=== PATIENT | male | born 1980 | race Caucasian/White ===

== ENCOUNTER 2020-07-02 21:16 | Inpatient (IN) | payer OTHER, SELFPAY ==
[2020-07-02 21:32] VITALS: BP 155/97; PULSE 93; RESP 16; TEMP 36.6; O2SAT 97; BMI 42.5
--- NOTE | 2020-07-02 22:20 | ED.PSYCH ---
HPI - Psych General Chief Complaint: Psychiatric Symptoms Stated Complaint: SI Time Seen by Provider: 07/02/20 22:12 Source: patient Mode of arrival: ambulatory Limitations: no limitations History of Present Illness HPI Narrative: This is a 40-year-old male with history of bipolar disorder and polysubstance abuse who is brought in for further evaluation for statements of wanting to kill himself and currently stating that he still wants to kill himself and had tried to yesterday by overdosing on heroin, but he states that someone came by and gave him Narcan. He states he is homeless, and very depressed. He endorses that he last used illicit substances earlier in the morning and specifies that he injected cocaine. He denies any recent alcohol use. Related Data Allergies Allergy/AdvReac Type Severity Reaction Status Date / Time No Known Allergies Allergy Unverified 06/12/20 15:32 [No Known Allergies*] Review of Systems Review of Systems: Pertinent positives and negatives as stated in the HPI. GEN: no fevers, chills, fatigue HEENT: no nasal congestion, sore throat, ear pain NEURO: no headache, dizziness, focal weakness PULM: no cough, shortness of breath CV: no chest pain, palpitations, LE edema ABD: no abdominal pain, nausea, vomiting, diarrhea : no dysuria, urgency, frequency SKIN: no rash ROS otherwise negative x 10 PMFSH Past Medical History Source: nursing notes reviewed Medical History Afib Anxiety Bipolar disorder Depression Stomach ulcer Social History Social History Alcohol intake: current Alcohol intake frequency: 3 or more drinks per day Alcohol type: beer and hard liquor Smoking Status: Current every day smoker Smoked in Last 30 Days: Yes Use of substances other than those prescribed or required for medical reasons: Yes Substance Use Type: Crack/Cocaine, Heroin and IV Drugs Substance Use Frequency: Daily Last Used Substance: Hours (ago) Any prior treatment program specific to substance use: Yes Advance Directives: No Advance Directives Information Provided: Yes Physical Exam Vital Signs and I&O and Narrative: Vital Signs and I&O: Vital Signs Temp 97.9 F 07/03/20 01:55 Pulse 82 07/03/20 01:55 Resp 15 07/03/20 06:00 BP 141/92 H 07/03/20 01:55 Pulse Ox 97 07/03/20 01:55 Intake & Output 07/02/20 07/03/20 07/03/20 18:59 06:59 18:59 Weight 127.006 kg Body Mass Index 42.5 VITAL SIGNS: Reviewed. GENERAL: Well developed, well nourished, in no acute distress. HEAD: Normocephalic/atraumatic, EYES: PERRLA, EOMI intact without pain, no nystagmus/pallor/icterus noted EARS: Ext canals without abnormality, TMs non-bulging and non-erythematous NOSE: Nares patent bilateral OROPHARYNX: no oral lesions noted, posterior pharynx clear and non-erythematous without noted tonsillar enlargement/erythema/exudates NECK: Supple, no adenopathy LUNGS: Normal breath sounds. No adventitious sounds or accessory muscle use. SpO2<97%> CARDIOVASCULAR: Regular rate and rhythm without noted murmurs, no JVD or lower extremity edema. ABDOMEN: Soft, non-tender, non-distended with bowel sounds. No rigidity. No guarding. No palpable masses or hernias noted MUSCULOSKELETAL: No tenderness, deformities, or effusions noted on gross inspection. EXTREMITIES: No cyanosis, clubbing or edema. SKIN: Inspection of the skin reveals no rashes, ulcerations, jaundice, pallor, or petechiae. NEUROLOGIC: Alert and oriented x 4. Strength and sensation to light touch were grossly intact x 4. Course Course Course Narrative: This is a 40-year-old male with history and clinical presentation consistent with decompensated bipolar disorder with depression. On review investigations there is a noted hypokalemia which was treated with 60 mEq of p.o. potassium chloride. Otherwise, U tox was positive for cocaine as endorsed by the patient. He is otherwise medically cleared for further evaluation by the crisis team and has been placed on a one-to-one. MDM - Psych Restraints Face to Face Assessment: Face to Face Assessment: Current Situation: After assessment of the patient, a review of the pertinent medical record and a discussion with nursing staff, I feel the patient requires a restrain intervention. Reaction To: [] Medical Condition: [] Behavioral State: [] Continued Need: [] Lab Data Result diagrams: 07/02/20 23:19 07/02/20 23:19 Labs: Lab Results 07/02/20 07/02/20 07/02/20 Range/Units 23:19 23:19 23:19 WBC 9.5 (4.8-10.8) X10*3/uL RBC 5.13 (4.60-5.80) X10*6/uL Hgb 15.6 (14.0-18.0) g/dl Hct 43.0 (42-52) % MCV 83.8 (80-98) fL MCH 30.4 (27.0-33.0) pg MCHC 36.3 H (31.0-36.0) g/dl RDW 12.1 (11.0-16.0) % Plt Count 203 (160-400) X10*3/uL MPV 10.6 (9.4-12.4) fL Immature Gran % (Auto) 0.5 H (0.0-0.4) % Neut % (Auto) 51.0 (45-73) % Lymph % (Auto) 27.6 (20-40) % [place] % (Auto) 16.3 H (2-11) % Eos % (Auto) 4.3 H (0-4) % Baso % (Auto) 0.3 (0-2) % Lymph # (Auto) 2.6 (1.2-4.9) X10*3/uL [place] # (Auto) 1.5 H (0.1-1.2) X10*3/uL Eos # (Auto) 0.4 (0.0-0.4) X10*3/uL Baso # (Auto) 0.0 (0.0-0.2) X10*3/uL Abs Immat Gran (auto) 0.05 H (0.00-0.03) X10*3/uL Absolute Neuts (auto) 4.8 (2.0-8.3) X10*3/uL Absolute Nucleated RBC 0.000 (0.0-0.012) X10*3/uL Nucleated RBC % (auto) 0.0 (0.0-0.2) /100WBC Smear Tech's Comments VERIFIED Sodium 139 (135-145) mmol/L Potassium 2.9 L (3.3-5.1) mmol/l Chloride 104 (96-108) mmol/L Carbon Dioxide 27 (22-29) mmol/L Anion Gap 11 L (12-20) BUN 13 (9-16) mg/dL Creatinine 1.06 (0.5-1.4) mg/dL Estim Creat Clear Calc 122.7 Estimated GFR > 60 Random Glucose 106 (60-115) mg/dL Calcium 8.6 (8.4-10.2) mg/dL Total Bilirubin 0.8 (0.0-1.0) mg/dL AST 25 (5-37) U/L ALT 41 H (0-40) U/L Alkaline Phosphatase 81 (39-117) U/L Total Protein 7.1 (6.5-8.0) g/dL Albumin 3.9 (3.5-5.0) g/dL Urine Color Urine Appearance Urine pH (5.0-8.0) Ur Specific [place] (1.005-1.025) Urine Protein (NEG-TRACE) MG/DL Urine Glucose (UA) (NEG) MG/DL Urine Ketones (NEG) MG/DL Urine Blood (NEG) Urine Nitrite (NEG) Ur Leukocyte Esterase (NEG) Urine Opiates Screen (Not Detect) Ur Barbiturates Screen (Not Detect) Ur Phencyclidine Scrn (Not Detect) Ur Amphetamines Screen (Not Detect) U Benzodiazepines Scrn (Not Detect) Urine Cocaine Screen (Not Detect) U Marijuana (THC) Screen (Not Detect) Ethyl Alcohol < 10 mg/dL 07/02/20 07/02/20 Range/Units 23:53 23:53 WBC (4.8-10.8) X10*3/uL RBC (4.60-5.80) X10*6/uL Hgb (14.0-18.0) g/dl Hct (42-52) % MCV (80-98) fL MCH (27.0-33.0) pg MCHC (31.0-36.0) g/dl RDW (11.0-16.0) % Plt Count (160-400) X10*3/uL MPV (9.4-12.4) fL Immature Gran % (Auto) (0.0-0.4) % Neut % (Auto) (45-73) % Lymph % (Auto) (20-40) % [place] % (Auto) (2-11) % Eos % (Auto) (0-4) % Baso % (Auto) (0-2) % Lymph # (Auto) (1.2-4.9) X10*3/uL [place] # (Auto) (0.1-1.2) X10*3/uL Eos # (Auto) (0.0-0.4) X10*3/uL Baso # (Auto) (0.0-0.2) X10*3/uL Abs Immat Gran (auto) (0.00-0.03) X10*3/uL Absolute Neuts (auto) (2.0-8.3) X10*3/uL Absolute Nucleated RBC (0.0-0.012) X10*3/uL Nucleated RBC % (auto) (0.0-0.2) /100WBC Smear Tech's Comments Sodium (135-145) mmol/L Potassium (3.3-5.1) mmol/l Chloride (96-108) mmol/L Carbon Dioxide (22-29) mmol/L Anion Gap (12-20) BUN (9-16) mg/dL Creatinine (0.5-1.4) mg/dL Estim Creat Clear Calc Estimated GFR Random Glucose (60-115) mg/dL Calcium (8.4-10.2) mg/dL Total Bilirubin (0.0-1.0) mg/dL AST (5-37) U/L ALT (0-40) U/L Alkaline Phosphatase (39-117) U/L Total Protein (6.5-8.0) g/dL Albumin (3.5-5.0) g/dL Urine Color AI Urine Appearance HAZY Urine pH 7.0 (5.0-8.0) Ur Specific [place] 1.020 (1.005-1.025) Urine Protein NEG (NEG-TRACE) MG/DL Urine Glucose (UA) NEG (NEG) MG/DL Urine Ketones NEG (NEG) MG/DL Urine Blood NEG (NEG) Urine Nitrite NEG (NEG) Ur Leukocyte Esterase NEG (NEG) Urine Opiates Screen Not Detected (Not Detect) Ur Barbiturates Screen Not Detected (Not Detect) Ur Phencyclidine Scrn Not Detected (Not Detect) Ur Amphetamines Screen Not Detected (Not Detect) U Benzodiazepines Scrn Not Detected (Not Detect) Urine Cocaine Screen POSITIVE H (Not Detect) U Marijuana (THC) Screen Not Detected (Not Detect) Ethyl Alcohol mg/dL
[2020-07-02 23:25] LABS: Basophils Percent Auto 0.3 % (0-2); Eosinophils Absolute Auto 0.4 X10*3/uL (0.0-0.4); Eosinophils Percent Auto 4.3 % (0-4); Hemoglobin 15.6 g/dl (14.0-18.0); Imm Gran Abs Auto 0.05 X10*3/uL (0.00-0.03); Imm Gran Pct Auto 0.5 % (0.0-0.4); Lymphocytes Absolute Auto 2.6 X10*3/uL (1.2-4.9); Lymphocytes Percent Auto 27.6 % (20-40); MANUAL DIFF FLAG SCAN; Mean Corpuscular HGB Conc 36.3 g/dl (31.0-36.0); Mean Corpuscular Hemoglobin 30.4 pg (27.0-33.0); Mean Corpuscular Volume 83.8 fL (80-98); Mean Platelet Volume 10.6 fL (9.4-12.4); Monocytes Absolute Auto 1.5 X10*3/uL (0.1-1.2); Monocytes Percent Auto 16.3 % (2-11); Neutrophils Absolute Auto 4.8 X10*3/uL (2.0-8.3); Platelet Count 203 X10*3/uL (160-400); Red Blood Count 5.13 X10*6/uL (4.60-5.80); Red Cell Distribution Width 12.1 % (11.0-16.0); SCAN SMEAR FLAG 1; White Blood Count 9.5 X10*3/uL (4.8-10.8)
[2020-07-02 23:45] LABS: SLIDE REVIEW VERIFIED
[2020-07-02 23:46] LABS: Ethanol < 10 mg/dL
[2020-07-02 23:51] VITALS: BP 131/88; PULSE 77; RESP 16; TEMP 35.8; O2SAT 99
[2020-07-02 23:52] LABS: Alanine Aminotransferase 41 U/L (0-40); Albumin Level 3.9 g/dL (3.5-5.0); Alkaline Phosphatase 81 U/L (39-117); Anion Gap 11 (12-20); Aspartate Amino Transferase 25 U/L (5-37); Bilirubin Total 0.8 mg/dL (0.0-1.0); Blood Urea Nitrogen 13 mg/dL (9-16); Calcium 8.6 mg/dL (8.4-10.2); Carbon Dioxide 27 mmol/L (22-29); Chloride 104 mmol/L (96-108); Creatinine Clr Calc Pharmacy 122.7; Estimated Glomerular Filt Rate > 60; Glucose Random 106 mg/dL (60-115); Potassium 2.9 mmol/l (3.3-5.1); Sodium 139 mmol/L (135-145); Total Protein 7.1 g/dL (6.5-8.0)
[2020-07-03] VITALS (9 sets, daily range): BP systolic 135–141; BP diastolic 67–92; PULSE 73–87; RESP 15–20; TEMP 35.9–37.1; O2SAT 95–98
[2020-07-03 00:11] LABS: Glucose Urine UA NEG (NEG); Leukocyte Esterase Urine NEG (NEG); Nitrite Urine NEG (NEG); Urine Blood NEG (NEG); Urine Ketones NEG (NEG); Urine Protein NEG (NEG-TRACE)
[2020-07-03 00:12] LABS: Appearance Urine HAZY; Color Urine AMBER; UACC Culture Trigger NO
--- NOTE | 2020-07-03 00:30 | PC.NURSE ---
FAXED TO [facility]. SPOKE WITH [facility]
[2020-07-03 00:34] LABS: Amphetamine Screen Urine Not Detected (Not Detect); Barbiturates, Urine Not Detected (Not Detect); Benzodiazepines Screen Urine Not Detected (Not Detect); Cannabinoid Screen Urine Not Detected (Not Detect); Cocaine Screen Urine POSITIVE (Not Detect); Opiate Screen Urine Not Detected (Not Detect); Phencyclidine Screen Urine Not Detected (Not Detect)
--- NOTE | 2020-07-03 11:49 | PC.NURSE ---
PT transferred to the pod from the main ED by security. Calm and cooperative. No other complaints.
--- NOTE | 2020-07-03 14:16 | PC.NURSE ---
Pt resting in common area, calm and cooperative, denies complaints.
--- NOTE | 2020-07-03 15:29 | PC.NURSE ---
PT is sitting quietly in the common room. Calm and cooperative. No complaints at this time.
--- NOTE | 2020-07-03 17:21 | PC.NURSE ---
PT is sleeping in his bed. Breathing is even and unlabored. No other complaints.
--- NOTE | 2020-07-03 19:15 | PC.NURSE ---
Report received from Jonas ZHAO. Pt sleeping in bed at this time. Resp reg and even. Inpatient bedsearch continues.
--- NOTE | 2020-07-03 22:19 | PC.NURSE ---
Pt sleeping at this time, resp reg and even. Inpatient bedsearch continues.
--- NOTE | 2020-07-04 | ECG_ITS ---
Test Reason : SOB Blood Pressure : / mmHG Vent. Rate : 066 BPM Atrial Rate : 066 BPM P-R Int : 146 ms QRS Dur : 090 ms QT Int : 434 ms P-R-T Axes : 023 -12 007 degrees QTc Int : 454 ms Normal sinus rhythm Normal ECG When compared with ECG of 05-APR-2020 16:23, Criteria for Anterior infarct are no longer Present Criteria for Anterolateral infarct are no longer Present T wave inversion no longer evident in Anterolateral leads Referred By: Anjelica Polanco Electronically Signed By:CHAN BUSTILLOS MD
[2020-07-04 00:21] VITALS: RESP 15
[2020-07-04 06:59] VITALS: BP 122/77; PULSE 73; RESP 17; TEMP 36.9; O2SAT 95
[2020-07-04 08:59] VITALS: RESP 18
[2020-07-04 11:00] VITALS: BP 114/78; PULSE 80; RESP 16; TEMP 36.3; O2SAT 97
[2020-07-04 12:38] LABS: SARS COV2 PCR INHOUSE NEGATIVE (Negative)
[2020-07-04 16:37] LABS: MANUAL DIFF FLAG NO
[2020-07-04 16:39] LABS: Basophils Percent Auto 0.3 % (0-2); Eosinophils Absolute Auto 0.4 X10*3/uL (0.0-0.4); Eosinophils Percent Auto 5.8 % (0-4); Hematocrit 42.1 % (42-52); Hemoglobin 15.1 g/dl (14.0-18.0); Imm Gran Abs Auto 0.04 X10*3/uL (0.00-0.03); Imm Gran Pct Auto 0.6 % (0.0-0.4); Lymphocytes Absolute Auto 2.4 X10*3/uL (1.2-4.9); Lymphocytes Percent Auto 33.5 % (20-40); Mean Corpuscular HGB Conc 35.9 g/dl (31.0-36.0); Mean Corpuscular Hemoglobin 30.3 pg (27.0-33.0); Mean Corpuscular Volume 84.5 fL (80-98); Mean Platelet Volume 10.6 fL (9.4-12.4); Monocytes Absolute Auto 0.8 X10*3/uL (0.1-1.2); Monocytes Percent Auto 11.5 % (2-11); Neutrophils Absolute Auto 3.4 X10*3/uL (2.0-8.3); Neutrophils Percent Auto 48.3 % (45-73); Platelet Count 201 X10*3/uL (160-400); Red Blood Count 4.98 X10*6/uL (4.60-5.80)
[2020-07-04 17:01] LABS: Anion Gap 10 (12-20); Blood Urea Nitrogen 16 mg/dL (9-16); Calcium 8.4 mg/dL (8.4-10.2); Carbon Dioxide 25 mmol/L (22-29); Chloride 105 mmol/L (96-108); Creatinine Clr Calc Pharmacy 126.3; Estimated Glomerular Filt Rate > 60; Glucose Random 141 mg/dL (60-115); Potassium 3.5 mmol/l (3.3-5.1); Sodium 136 mmol/L (135-145)
--- NOTE | 2020-07-04 17:04 | PC.NURSE ---
nurse to nurse updated to m5
[2020-07-04 17:29] VITALS: BP 122/78; PULSE 93; RESP 14; TEMP 36.1; O2SAT 98
[2020-07-04 19:16] VITALS: BP 131/64; PULSE 66; RESP 14; TEMP 36; O2SAT 96
[2020-07-04] MEDS: QUEtiapine Fumarate 200 MG TABLET PO (23:18)
[2020-07-04] MEDS: Divalproex Sodium ER 500 MG TAB.ER.24H PO (23:18)
[2020-07-04] MEDS: Melatonin 3 MG TABLET 6 MG PO (23:19)
[2020-07-04] MEDS: traZODone HCL 100 MG TABLET 200 MG PO (23:19)
[2020-07-05] MEDS: Omeprazole 20 MG CAPSULE.DR PO (06:55)
[2020-07-05] MEDS: Sertraline HCL 50 MG TABLET PO (09:03)
[2020-07-05 09:05] VITALS: BP 108/69; PULSE 69; TEMP 36.2
--- NOTE | 2020-07-05 15:19 | PC.ADMIT ---
THIS IS ONE OF MULTIPLE ADMISSIONS TO THIS [facility] AT [facility]=
--- NOTE | 2020-07-05 15:22 | PC.ADMIT ---
Addendum entered by Sheeba Saleh RN 07/05/20 16:14: PT ON 15 MIN SAFETY CHECKS. Original Note: THIS IS ONE OF MULTIPLE ADMISSIONS FOR THIS 39 Y.O. MALE TO THIS [facility] AT [facility]. ARRIVED ON UNIT 07/04/20 AT 1840 WITH DX OF UNSPECIFIED BIPOLAR D/O, COCAINE DEP, ALCOHOL USE D/O, OPIOID DEP. REFERRED BY N CRISIS IN [facility]. REPORTS ETOH USE DAILY-4 SLEEVES OF FIREBALL DAILY, COCAINE USE AND HEROIN USE-LAST USE 07/02/20. REPORTS RECENT INTENTIONAL OD ON HEROIN WITH NEED FOR NARCAN DAY PRIOR TO ADMISSION TO ED. REPORTS RECENT OF BEST FRIEND DUE TO UNINTENTIONAL OD. [place] POSITIVE FOR COCAINE. COOPERATIVE WITH COMPLETING ADMISSION. REPORTS PASSIVE SI ALWAYS, NO PLAN WHILE IN HOSPITAL. REPORTS VAGUE THOUGHTS OF HURTING OTHERS WITH VAGUE PLAN. NO PERSON IDENTIFIED TO HURT. DENIES AH/VH. REPORTS DEPRESSION AND ANXIETY. ISOLATIVE TO ROOM AND SELF. STATES BEING IN [place] CAUSES HIM ANXIETY. STATES HE IS MORE VISIBLE IN NIGHT TIME HOURS. STATES HE IS VERY TIRED FROM NOT SLEEPING PRIOR TO ADMISSION. DENIES S/SX OF WITHDRAWAL. ADMISSION ORDERS RECEIVED FROM DR BEVERLY. [facility] CLOSED. MEDS VERIFIED BY USE OF LAST DISCHARGE FROM UNIT MED LIST. CONDITIONAL VOLUNTARY SIGNED. PT PLACED ON 5 MIN CHECKS UPON ADMISSION. CURRENTLY ON 5 MIN CHECKS, UNLOCKED BATHROOM.
--- NOTE | 2020-07-05 19:14 | HO.PSYADMNOT ---
HPI Chief Complaint: SI Sources of Information: patient interviewed, chart reviewed and crisis/core team assessment reviewed Additional Sources of Information: CV HPI Narrative: Asher was referred by N after he presented to the ER with SI, in the context of homelessness and substance abuse. He has not been taking his medications consistently. He reports that he had OD on heroin and received Narcan. He was fearful that he would try again.'Toxic screen in the ER was negative. He has been increasingly despairing and hopeless. He reports that he just wants to give up He is relieved to be in the hospital Past Psychiatric History: Currently in treatment at [facility]. Psychiatrist is Rosendo Tomas Therapist is Iftikhar Banks [facility]. Last on M5 in March 2020, when there was a petition for s35 Medical Evaluation Reviewed: Yes Medically stable [facility] Medical History Afib Anxiety Bipolar disorder Depression Stomach ulcer Family History: Unknown Social History: Homeless Grew up in Foster Care Has GED He is on disability Substance History: Cocaine Heroin Cannabis Alcohol Last s35 March 2020 Very little sobriety Trauma History: Unknown Diagnostics Vital Signs (24Hr): Vital Signs - 24 hr 07/04/20 19:16 07/05/20 09:05 Temperature 96.8 F 97.1 F Pulse Rate 66 69 Respiratory Rate 14 Blood Pressure 131/64 108/69 Pulse Oximetry 96 Body Mass Index 42.5 Labs Results: 07/04/20 16:32 07/04/20 16:32 Labs: Laboratory Results - last 48 hr 07/04/20 07/04/20 07/04/20 11:25 16:32 16:32 WBC 7.0 RBC 4.98 Hgb 15.1 Hct 42.1 MCV 84.5 MCH 30.3 MCHC 35.9 RDW 12.0 Plt Count 201 MPV 10.6 Immature Gran % (Auto) 0.6 H Neut % (Auto) 48.3 Lymph % (Auto) 33.5 [place] % (Auto) 11.5 H Eos % (Auto) 5.8 H Baso % (Auto) 0.3 Lymph # (Auto) 2.4 [place] # (Auto) 0.8 Eos # (Auto) 0.4 Baso # (Auto) 0.0 Abs Immat Gran (auto) 0.04 H Absolute Neuts (auto) 3.4 Absolute Nucleated RBC 0.000 Nucleated RBC % (auto) 0.0 Sodium 136 Potassium 3.5 D Chloride 105 Carbon Dioxide 25 Anion Gap 10 L BUN 16 Creatinine 1.03 Estim Creat Clear Calc 126.3 Estimated GFR > 60 Random Glucose 141 H Calcium 8.4 Coronavirus (PCR) NEGATIVE Meds/Allergies Meds Home Medications Medication Instructions Recorded Confirmed Type No Known Home Meds 07/04/20 07/04/20 History Allergies Allergies Allergy/AdvReac Type Severity Reaction Status Date / Time No Known Allergies Allergy Unverified 06/12/20 15:32 [No Known Allergies*] Mental Status Exam Mental Status Exam Patient Appearance: Fatigued Patient Orientation: Person, Place and Time Level of Consciousness: Drowsy Patient Behavior: Guarded and Avoidant Mood Description: Apathetic, Anxious and Sad Affect Description: Depressed and Sad Patient Cognition Impaired: No Ability to Follow Directions: Good Speech Pattern: Clear, Appropriate and Spontaneous Speech Memory Description: Intact Hallucinations: None Delusions: Not Present Thought Process: Rumination and Goal Oriented Thought Content: positive for Circumstantial, positive for Poverty of Content, positive for Slowed Thinking, positive for Suicidal Ideation and positive for Homicidal Ideation Depressive Symptoms: Increased Anxiety, Diff. Making Decisions, Increased Irritability, Changes in Appetite, Crying Spells, Loss of Int. in Activity and Feelings of Worthlessness Judgement: Fair Assessment & Plan Assessment & Plan (1) Bipolar 1 disorder: Status: Acute Code(s): F31.9 - Bipolar disorder, unspecified Assessment and Plan: Re-start medications Monitor response (2) Opioid use disorder: Status: Acute Code(s): F11.99 - Opioid use, unspecified with unspecified opioid-induced disorder Assessment and Plan: [facility] Monitor WD (3) Cocaine use disorder: Status: Acute Code(s): F14.10 - Cocaine abuse, uncomplicated Assessment and Plan: [facility] Patient educated on: diagnosis, medication risk/benefits and substance abuse Informed Consent: further education needed Reason for continued inpatient stay Substantial Risk for: harm to self and rapid decompensation
[2020-07-05] MEDS: traZODone HCL 100 MG TABLET 200 MG PO (20:42)
[2020-07-05] MEDS: Melatonin 3 MG TABLET 6 MG PO (20:43)
[2020-07-05] MEDS: Divalproex Sodium ER 500 MG TAB.ER.24H PO (20:43)
[2020-07-05] MEDS: QUEtiapine Fumarate 200 MG TABLET PO (20:43)
[2020-07-05 22:00] VITALS: BP 132/71; PULSE 75; TEMP 36.3
[2020-07-06] MEDS: Omeprazole 20 MG CAPSULE.DR PO (06:31)
[2020-07-06 07:16] VITALS: BP 118/62; PULSE 66; TEMP 36.4
[2020-07-06] MEDS: Sertraline HCL 50 MG TABLET PO (08:44)
[2020-07-06] MEDS: Acetaminophen 325 MG TABLET 650 MG PO (08:46)
[2020-07-06] MEDS: Naloxone HCl Nasal TAKE HOME 4 MG SPRAY NOSTRILALT (11:24)
[2020-07-06] MEDS: Divalproex Sodium ER 500 MG TAB.ER.24H PO ×2 (12:46→21:13)
[2020-07-06] MEDS: QUEtiapine Fumarate 50 MG TABLET PO (12:46)
[2020-07-06 14:25] VITALS: BP 125/75; PULSE 90
[2020-07-06] MEDS: Propranolol HCL 20 MG TABLET PO ×2 (14:25→21:13)
[2020-07-06 14:26] VITALS: PULSE 90
[2020-07-06 17:35] VITALS: BP 128/72; PULSE 72; TEMP 36.1; O2SAT 98
--- NOTE | 2020-07-06 19:02 | HO.PSYCHPN ---
Subjective Subjective Date of Service: 07/06/20 Reason For Visit: SI Subjective Notes: Conditional Voluntary Interim History: Asher was quite anxious, and he reports that this is why he is spending time alone. We agreed to standing seroquel, and use vistaril as a prn. He continues to feel that life is not worth living. He wants to use a CSS when he is ready for DC. Medication Compliance: Yes Side effects from medications: No Attending Groups: Intermittent Review of Systems Acute medical concerns: No Medical Review of Systems: unchanged Review of Systems Review of Systems Yes all other systems are reviewed and are negative Mental Status Exam Mental Status Exam Patient Appearance: Fatigued Patient Orientation: Person, Place and Time Level of Consciousness: Drowsy Patient Behavior: Guarded and Avoidant Mood Description: Apathetic, Anxious and Sad Affect Description: Depressed, Anxious, Sad and Nervous Patient Cognition Impaired: No Ability to Follow Directions: Good Speech Pattern: Clear, Appropriate and Spontaneous Speech Memory Description: Intact Hallucinations: None Delusions: Not Present Thought Process: Rumination and Goal Oriented Thought Content: positive for Circumstantial, positive for Poverty of Content, positive for Slowed Thinking, negative for Suicidal Ideation and negative for Homicidal Ideation Depressive Symptoms: Increased Anxiety, Diff. Making Decisions, Increased Irritability, Changes in Appetite, Crying Spells, Loss of Int. in Activity and Feelings of Worthlessness Judgement: Fair Diagnostics Vital Signs (24Hr): Vital Signs - 24 hr 07/05/20 22:00 07/06/20 07:16 07/06/20 14:25 Temperature 97.4 F 97.6 F Pulse Rate 75 66 90 Blood Pressure 132/71 118/62 125/75 Pulse Oximetry 07/06/20 14:26 07/06/20 17:35 Temperature 97.0 F Pulse Rate 90 72 Blood Pressure 128/72 Pulse Oximetry 98 Body Mass Index 42.5 Labs Results: 07/04/20 16:32 07/04/20 16:32 Medications Medications Current Medications Generic Name Dose Route Start Last Admin Trade Name Freq PRN Reason Stop Dose Admin Acetaminophen 650 mg 07/04/20 21:05 07/06/20 08:46 Acetaminophen 325 Mg Tablet PO 650 mg Q6H PRN Administration Headache/Pain Mild Scale (1-3) Al Hydroxide/Mg Hydroxide 30 ml 07/04/20 21:05 Magnesium Hydrox/Alum Hydrox 30 Ml Oral.Susp PO Q6H PRN Heartburn/Nausea Divalproex Sodium 500 mg 07/06/20 11:45 07/06/20 12:46 Divalproex Sodium Er 500 Mg Tab.Er.24h PO 500 mg BID FEMI Administration Hydroxyzine HCl 50 mg 07/06/20 11:43 Hydroxyzine Hcl 25 Mg Tablet PO Q4H PRN Anxiety Magnesium Hydroxide 30 ml 07/04/20 21:05 Milk Of Magnesia 30 Ml Oral.Susp PO DAILY PRN Constipation Melatonin 6 mg 07/04/20 21:15 07/05/20 20:43 Melatonin 3 Mg Tablet PO 6 mg BEDTIME FEMI Administration Omeprazole 20 mg 07/05/20 06:30 07/06/20 06:31 Omeprazole 20 Mg Capsule.Dr PO 20 mg DAILY@0630 FEMI Administration Propranolol HCl 20 mg 07/06/20 15:00 07/06/20 14:25 Propranolol Hcl 20 Mg Tablet PO 20 mg TID FEMI Administration Protocol Quetiapine Fumarate 400 mg 07/06/20 21:00 Quetiapine Fumarate 200 Mg Tablet PO BEDTIME FEMI Quetiapine Fumarate 50 mg 07/06/20 13:30 07/06/20 12:46 Quetiapine Fumarate 50 Mg Tablet PO 50 mg BID@0830,1330 FEMI Administration Sertraline HCl 100 mg 07/07/20 09:00 Sertraline Hcl 100 Mg Tablet PO DAILY FEMI Trazodone HCl 50 mg 07/04/20 21:05 Trazodone Hcl 50 Mg Tablet PO BEDTIME PRN Insomnia Trazodone HCl 200 mg 07/04/20 21:15 07/05/20 20:42 Trazodone Hcl 100 Mg Tablet PO 200 mg BEDTIME FEMI Administration Allergies Allergies Allergy/AdvReac Type Severity Reaction Status Date / Time No Known Allergies Allergy Unverified 06/12/20 15:32 [No Known Allergies*] Assessment & Plan Assessment & Plan (1) Opioid use disorder: Status: Acute Code(s): F11.99 - Opioid use, unspecified with unspecified opioid-induced disorder Assessment and Plan: CT suboxone CSS referral (2) Cocaine use disorder: Status: Acute Code(s): F14.10 - Cocaine abuse, uncomplicated Assessment and Plan: CSS referral (3) Bipolar 1 disorder: Status: Acute Code(s): F31.9 - Bipolar disorder, unspecified Assessment and Plan: CT to stabilize on medication that he has been on in the past with good effect. Skills Groups Greater than 50% of the session was spent on counseling and/or coordination of care Patient educated on: diagnosis, medication risk/benefits and substance abuse Informed Consent: further education needed Reason for contiued inpatient stay Substantial Risk for: harm to self, inability to function and rapid decompensation
[2020-07-06] MEDS: Melatonin 3 MG TABLET 6 MG PO (21:11)
[2020-07-06] MEDS: traZODone HCL 100 MG TABLET 200 MG PO (21:11)
[2020-07-06] MEDS: QUEtiapine Fumarate 200 MG TABLET 400 MG PO (21:12)
[2020-07-06 21:13] VITALS: BP 131/72; PULSE 75
[2020-07-06 21:15] VITALS: BP 131/72; PULSE 75
[2020-07-07] MEDS: Omeprazole 20 MG CAPSULE.DR PO (06:53)
[2020-07-07 07:06] VITALS: BP 100/52; PULSE 63; RESP 18; TEMP 36.4
[2020-07-07] MEDS: Sertraline HCL 100 MG TABLET PO (09:08)
[2020-07-07 09:09] VITALS: BP 100/60; PULSE 60
[2020-07-07] MEDS: Propranolol HCL 20 MG TABLET PO ×3 (09:09→21:28)
[2020-07-07] MEDS: Divalproex Sodium ER 500 MG TAB.ER.24H PO ×2 (09:09→21:31)
[2020-07-07] MEDS: QUEtiapine Fumarate 50 MG TABLET PO ×2 (09:11→14:05)
[2020-07-07 14:05] VITALS: BP 117/68; PULSE 94
[2020-07-07 16:26] VITALS: BP 100/55; PULSE 77; TEMP 36.9
[2020-07-07 21:28] VITALS: BP 122/72; PULSE 81
[2020-07-07] MEDS: QUEtiapine Fumarate 200 MG TABLET 400 MG PO (21:28)
[2020-07-07] MEDS: Melatonin 3 MG TABLET 6 MG PO (21:31)
[2020-07-07] MEDS: traZODone HCL 100 MG TABLET 200 MG PO (21:31)
[2020-07-07] MEDS: hydrOXYzine HCL 25 MG TABLET 50 MG PO (21:32)
--- NOTE | 2020-07-07 22:19 | HO.PSYCHPN ---
Subjective Subjective Reason For Visit: SI Interim History: Asher was quite anxious, and he reports that this is why he is spending time alone. We agreed to standing seroquel, and use vistaril as a prn. Pt depressed withdrawn states safe here no active si He wants to use a CSS when he is ready for DC. Mental Status Exam Mental Status Exam Patient Appearance: Fatigued Patient Orientation: Person, Place and Time Level of Consciousness: Drowsy Patient Behavior: Guarded and Avoidant Mood Description: Apathetic, Anxious and Sad Affect Description: Depressed, Anxious, Sad and Nervous Patient Cognition Impaired: No Ability to Follow Directions: Good Speech Pattern: Clear, Appropriate and Spontaneous Speech Memory Description: Intact Diagnostics Vital Signs (24Hr): Vital Signs - 24 hr 07/07/20 07:06 07/07/20 09:09 07/07/20 14:05 Temperature 97.5 F Pulse Rate 63 60 94 Respiratory Rate 18 Blood Pressure 100/52 L 100/60 117/68 07/07/20 16:26 07/07/20 21:28 Temperature 98.4 F Pulse Rate 77 81 Respiratory Rate Blood Pressure 100/55 L 122/72 Body Mass Index 42.5 Labs Results: 07/04/20 16:32 07/04/20 16:32 Medications Medications Current Medications Generic Name Dose Route Start Last Admin Trade Name Davidq PRN Reason Stop Dose Admin Acetaminophen 650 mg 07/04/20 21:05 07/06/20 08:46 Acetaminophen 325 Mg Tablet PO 650 mg Q6H PRN Administration Headache/Pain Mild Scale (1-3) Al Hydroxide/Mg Hydroxide 30 ml 07/04/20 21:05 Magnesium Hydrox/Alum Hydrox 30 Ml Oral.Susp PO Q6H PRN Heartburn/Nausea Divalproex Sodium 500 mg 07/06/20 11:45 07/07/20 21:31 Divalproex Sodium Er 500 Mg Tab.Er.24h PO 500 mg BID FEMI Administration Hydroxyzine HCl 50 mg 07/06/20 11:43 07/07/20 21:32 Hydroxyzine Hcl 25 Mg Tablet PO 50 mg Q4H PRN Administration Anxiety Magnesium Hydroxide 30 ml 07/04/20 21:05 Milk Of Magnesia 30 Ml Oral.Susp PO DAILY PRN Constipation Melatonin 6 mg 07/04/20 21:15 07/07/20 21:31 Melatonin 3 Mg Tablet PO 6 mg BEDTIME FEMI Administration Omeprazole 20 mg 07/05/20 06:30 07/07/20 06:53 Omeprazole 20 Mg Capsule.Dr PO 20 mg DAILY@0630 FEMI Administration Propranolol HCl 20 mg 07/06/20 15:00 07/07/20 21:28 Propranolol Hcl 20 Mg Tablet PO 20 mg TID FEMI Administration Protocol Quetiapine Fumarate 400 mg 07/06/20 21:00 07/07/20 21:28 Quetiapine Fumarate 200 Mg Tablet PO 400 mg BEDTIME FEMI Administration Quetiapine Fumarate 50 mg 07/06/20 13:30 07/07/20 14:05 Quetiapine Fumarate 50 Mg Tablet PO 50 mg BID@0830,1330 FEMI Administration Sertraline HCl 100 mg 07/07/20 09:00 07/07/20 09:08 Sertraline Hcl 100 Mg Tablet PO 100 mg DAILY FEMI Administration Trazodone HCl 50 mg 07/04/20 21:05 Trazodone Hcl 50 Mg Tablet PO BEDTIME PRN Insomnia Trazodone HCl 200 mg 07/04/20 21:15 07/07/20 21:31 Trazodone Hcl 100 Mg Tablet PO 200 mg BEDTIME FEMI Administration Allergies Allergies Allergy/AdvReac Type Severity Reaction Status Date / Time No Known Allergies Allergy Unverified 06/12/20 15:32 [No Known Allergies*] Assessment & Plan Assessment & Plan (1) Opioid use disorder: Status: Acute Code(s): F11.99 - Opioid use, unspecified with unspecified opioid-induced disorder Assessment and Plan: CT suboxone CSS referral (2) Cocaine use disorder: Status: Acute Code(s): F14.10 - Cocaine abuse, uncomplicated Assessment and Plan: CSS referral (3) Bipolar 1 disorder: Status: Acute Code(s): F31.9 - Bipolar disorder, unspecified Assessment and Plan: CT to stabilize on medication that he has been on in the past with good effect. continue Depakote and Seroquel Skills Groups Greater than 50% of the session was spent on counseling and/or coordination of care
[2020-07-08] MEDS: Omeprazole 20 MG CAPSULE.DR PO (05:50)
[2020-07-08 06:20] VITALS: BP 80/44; PULSE 60; RESP 16; TEMP 36.2; O2SAT 96
[2020-07-08 08:47] VITALS: BP 99/63; PULSE 65
[2020-07-08] MEDS: Sertraline HCL 100 MG TABLET PO (08:47)
[2020-07-08] MEDS: QUEtiapine Fumarate 50 MG TABLET PO (08:47)
[2020-07-08] MEDS: Divalproex Sodium ER 500 MG TAB.ER.24H PO (08:47)
[2020-07-08] MEDS: Propranolol HCL 20 MG TABLET PO ×3 (08:47→21:35)
--- NOTE | 2020-07-08 09:33 | HO.PSYCHPN ---
Subjective Subjective Date of Service: 07/08/20 Reason For Visit: SI Subjective Notes: Conditional Voluntary Interim History: Asher has been quite anxious, and he reports that this is why he is spending time alone. He has found the standing seroquel helpful but he still has anxiety. We agreed to increase the dose. Pt depressed withdrawn states safe here no active si He wants to use a CSS when he is ready for DC. Medication Compliance: Yes Side effects from medications: No Attending Groups: Yes Review of Systems Acute medical concerns: No Medical Review of Systems: unchanged Mental Status Exam Mental Status Exam Patient Appearance: Well Grooomed Patient Orientation: Person, Place and Time Level of Consciousness: Drowsy Patient Behavior: Guarded and Avoidant Mood Description: Apathetic, Anxious and Sad Affect Description: Depressed, Anxious, Sad and Nervous Patient Cognition Impaired: No Ability to Follow Directions: Good Speech Pattern: Clear, Appropriate and Spontaneous Speech Memory Description: Intact Hallucinations: None Delusions: Not Present Thought Process: Rumination and Goal Oriented Thought Content: positive for Circumstantial, negative for Suicidal Ideation and negative for Homicidal Ideation Depressive Symptoms: Feelings of Worthlessness, Hopelessness and Low Self Esteem Judgement: Fair Diagnostics Vital Signs (24Hr): Vital Signs - 24 hr 07/07/20 14:05 07/07/20 16:26 07/07/20 21:28 Temperature 98.4 F Pulse Rate 94 77 81 Respiratory Rate Blood Pressure 117/68 100/55 L 122/72 Pulse Oximetry 07/08/20 06:20 07/08/20 08:47 Temperature 97.1 F Pulse Rate 60 65 Respiratory Rate 16 Blood Pressure 80/44 L 99/63 Pulse Oximetry 96 Body Mass Index 42.5 Labs Results: 07/04/20 16:32 07/04/20 16:32 Medications Medications Current Medications Generic Name Dose Route Start Last Admin Trade Name Freq PRN Reason Stop Dose Admin Acetaminophen 650 mg 07/04/20 21:05 07/06/20 08:46 Acetaminophen 325 Mg Tablet PO 650 mg Q6H PRN Administration Headache/Pain Mild Scale (1-3) Al Hydroxide/Mg Hydroxide 30 ml 07/04/20 21:05 Magnesium Hydrox/Alum Hydrox 30 Ml Oral.Susp PO Q6H PRN Heartburn/Nausea Divalproex Sodium 500 mg 07/06/20 11:45 07/08/20 08:47 Divalproex Sodium Er 500 Mg Tab.Er.24h PO 500 mg BID FEMI Administration Hydroxyzine HCl 50 mg 07/06/20 11:43 07/07/20 21:32 Hydroxyzine Hcl 25 Mg Tablet PO 50 mg Q4H PRN Administration Anxiety Magnesium Hydroxide 30 ml 07/04/20 21:05 Milk Of Magnesia 30 Ml Oral.Susp PO DAILY PRN Constipation Melatonin 6 mg 07/04/20 21:15 07/07/20 21:31 Melatonin 3 Mg Tablet PO 6 mg BEDTIME FEMI Administration Omeprazole 20 mg 07/05/20 06:30 07/08/20 05:50 Omeprazole 20 Mg Capsule.Dr PO 20 mg DAILY@0630 FEMI Administration Propranolol HCl 20 mg 07/06/20 15:00 07/08/20 08:47 Propranolol Hcl 20 Mg Tablet PO 20 mg TID FEMI Administration Protocol Quetiapine Fumarate 400 mg 07/06/20 21:00 07/07/20 21:28 Quetiapine Fumarate 200 Mg Tablet PO 400 mg BEDTIME FEMI Administration Quetiapine Fumarate 50 mg 07/06/20 13:30 07/08/20 08:47 Quetiapine Fumarate 50 Mg Tablet PO 50 mg BID@0830,1330 FEMI Administration Sertraline HCl 100 mg 07/07/20 09:00 07/08/20 08:47 Sertraline Hcl 100 Mg Tablet PO 100 mg DAILY FEMI Administration Trazodone HCl 50 mg 07/04/20 21:05 Trazodone Hcl 50 Mg Tablet PO BEDTIME PRN Insomnia Trazodone HCl 200 mg 07/04/20 21:15 07/07/20 21:31 Trazodone Hcl 100 Mg Tablet PO 200 mg BEDTIME FEMI Administration Allergies Allergies Allergy/AdvReac Type Severity Reaction Status Date / Time No Known Allergies Allergy Unverified 06/12/20 15:32 [No Known Allergies*] Assessment & Plan Assessment & Plan (1) Bipolar 1 disorder: Status: Acute Code(s): F31.9 - Bipolar disorder, unspecified (2) Cocaine use disorder: Status: Acute Code(s): F14.10 - Cocaine abuse, uncomplicated (3) Opioid use disorder: Status: Acute Code(s): F11.99 - Opioid use, unspecified with unspecified opioid-induced disorder Assessment and Plan: Increase seroquel, depakote Check depakote level. Refer to CSS Greater than 50% of the session was spent on counseling and/or coordination of care Patient educated on: diagnosis, medication risk/benefits and substance abuse Informed Consent: further education needed Reason for contiued inpatient stay Substantial Risk for: inability to function and rapid decompensation
[2020-07-08] MEDS: Flu Vacc QS2020-21(6mos up)/PF 0.5 ML SYRINGE IM (10:27)
[2020-07-08 14:22] VITALS: BP 102/63; PULSE 75
[2020-07-08] MEDS: QUEtiapine Fumarate 100 MG TABLET PO (14:22)
[2020-07-08] MEDS: hydrOXYzine HCL 25 MG TABLET 50 MG PO (14:22)
[2020-07-08 17:15] VITALS: BP 121/56; PULSE 77; TEMP 36.5
[2020-07-08] MEDS: QUEtiapine Fumarate 200 MG TABLET 400 MG PO (21:34)
[2020-07-08] MEDS: Melatonin 3 MG TABLET 6 MG PO (21:34)
[2020-07-08 21:35] VITALS: BP 121/56; PULSE 77
[2020-07-08] MEDS: traZODone HCL 100 MG TABLET 200 MG PO (21:35)
[2020-07-08] MEDS: Divalproex Sodium ER 500 MG TAB.ER.24H 1000 MG PO (21:35)
[2020-07-09] MEDS: Omeprazole 20 MG CAPSULE.DR PO (06:24)
[2020-07-09 06:27] VITALS: BP 93/50; PULSE 63; RESP 18; TEMP 36; O2SAT 97
[2020-07-09 08:21] VITALS: BP 99/63; PULSE 65
[2020-07-09] MEDS: hydrOXYzine HCL 25 MG TABLET 50 MG PO ×2 (08:21→16:59)
[2020-07-09] MEDS: QUEtiapine Fumarate 100 MG TABLET PO ×2 (08:21→16:59)
[2020-07-09] MEDS: Sertraline HCL 50 MG TABLET 150 MG PO (08:21)
[2020-07-09] MEDS: Divalproex Sodium 500 MG TABLET.DR PO (08:21)
[2020-07-09] MEDS: Propranolol HCL 20 MG TABLET PO ×3 (08:21→22:20)
--- NOTE | 2020-07-09 09:28 | HO.PSYCHPN ---
Subjective Subjective Date of Service: 07/09/20 Reason For Visit: SI Subjective Notes: Conditional Voluntary Interim History: Asher has been feeling some decrease in anxiety. However he is still experiencing some anxiety that is interfering with his function. We agreed to increase the dose of seroquel and vistaril. He wants to use a CSS when he is ready for DC. Medication Compliance: Yes Side effects from medications: No Attending Groups: Yes Review of Systems Acute medical concerns: No Medical Review of Systems: unchanged Mental Status Exam Mental Status Exam Patient Appearance: Well Grooomed Patient Orientation: Person, Place and Time Level of Consciousness: Drowsy Patient Behavior: Guarded Mood Description: Apathetic, Anxious and Sad Affect Description: Depressed, Anxious, Sad and Nervous Patient Cognition Impaired: No Ability to Follow Directions: Good Speech Pattern: Clear, Appropriate and Spontaneous Speech Memory Description: Intact Hallucinations: None Delusions: Not Present Thought Process: Rumination and Goal Oriented Thought Content: positive for Circumstantial, negative for Suicidal Ideation and negative for Homicidal Ideation Depressive Symptoms: Feelings of Worthlessness and Low Self Esteem Judgement: Fair Diagnostics Vital Signs (24Hr): Vital Signs - 24 hr 07/08/20 14:22 07/08/20 17:15 07/08/20 21:35 Temperature 97.7 F Pulse Rate 75 77 77 Respiratory Rate Blood Pressure 102/63 121/56 L 121/56 L Pulse Oximetry 07/09/20 06:27 07/09/20 08:21 Temperature 96.8 F Pulse Rate 63 65 Respiratory Rate 18 Blood Pressure 93/50 L 99/63 Pulse Oximetry 97 Body Mass Index 42.5 Labs Results: 07/04/20 16:32 07/04/20 16:32 Medications Medications Current Medications Generic Name Dose Route Start Last Admin Trade Name Freq PRN Reason Stop Dose Admin Acetaminophen 650 mg 07/04/20 21:05 07/06/20 08:46 Acetaminophen 325 Mg Tablet PO 650 mg Q6H PRN Administration Headache/Pain Mild Scale (1-3) Al Hydroxide/Mg Hydroxide 30 ml 07/04/20 21:05 Magnesium Hydrox/Alum Hydrox 30 Ml Oral.Susp PO Q6H PRN Heartburn/Nausea Divalproex Sodium 1,000 mg 07/08/20 21:00 07/08/20 21:35 Divalproex Sodium Er 500 Mg Tab.Er.24h PO 1,000 mg BEDTIME FEMI Administration Divalproex Sodium 500 mg 07/09/20 09:00 07/09/20 08:21 Divalproex Sodium 500 Mg Tablet. PO 500 mg DAILY FEMI Administration Hydroxyzine HCl 50 mg 07/08/20 13:30 07/09/20 08:21 Hydroxyzine Hcl 25 Mg Tablet PO 50 mg BID@0830,1330 FEMI Administration Magnesium Hydroxide 30 ml 07/04/20 21:05 Milk Of Magnesia 30 Ml Oral.Susp PO DAILY PRN Constipation Melatonin 6 mg 07/04/20 21:15 07/08/20 21:34 Melatonin 3 Mg Tablet PO 6 mg BEDTIME FEMI Administration Omeprazole 20 mg 07/05/20 06:30 07/09/20 06:24 Omeprazole 20 Mg Capsule. PO 20 mg DAILY@0630 FEMI Administration Propranolol HCl 20 mg 07/06/20 15:00 07/09/20 08:21 Propranolol Hcl 20 Mg Tablet PO 20 mg TID FEMI Administration Protocol Quetiapine Fumarate 400 mg 07/06/20 21:00 07/08/20 21:34 Quetiapine Fumarate 200 Mg Tablet PO 400 mg BEDTIME FEMI Administration Quetiapine Fumarate 100 mg 07/08/20 13:30 07/09/20 08:21 Quetiapine Fumarate 100 Mg Tablet PO 100 mg BID@0830,1330 FEMI Administration Sertraline HCl 150 mg 07/09/20 09:00 07/09/20 08:21 Sertraline Hcl 50 Mg Tablet PO 150 mg DAILY FEMI Administration Trazodone HCl 50 mg 07/04/20 21:05 Trazodone Hcl 50 Mg Tablet PO BEDTIME PRN Insomnia Trazodone HCl 200 mg 07/04/20 21:15 07/08/20 21:35 Trazodone Hcl 100 Mg Tablet PO 200 mg BEDTIME FEMI Administration Allergies Allergies Allergy/AdvReac Type Severity Reaction Status Date / Time No Known Allergies Allergy Unverified 06/12/20 15:32 [No Known Allergies*] Assessment & Plan Assessment & Plan (1) Bipolar 1 disorder: Status: Acute Code(s): F31.9 - Bipolar disorder, unspecified (2) Cocaine use disorder: Status: Acute Code(s): F14.10 - Cocaine abuse, uncomplicated (3) Opioid use disorder: Status: Acute Code(s): F11.99 - Opioid use, unspecified with unspecified opioid-induced disorder Assessment and Plan: Increase seroquel and vistaril Wait for CSS Greater than 50% of the session was spent on counseling and/or coordination of care Patient educated on: diagnosis, medication risk/benefits and substance abuse Informed Consent: further education needed Reason for contiued inpatient stay Substantial Risk for: rapid decompensation
[2020-07-09] MEDS: QUEtiapine Fumarate 50 MG TABLET 100 MG PO (14:30)
[2020-07-09 14:31] VITALS: BP 125/72; PULSE 84
[2020-07-09] MEDS: hydrOXYzine HCL 50 MG TABLET PO (14:31)
[2020-07-09 17:02] VITALS: BP 119/77; PULSE 82; TEMP 36.7
[2020-07-09 22:20] VITALS: BP 130/65; PULSE 91
[2020-07-09] MEDS: Divalproex Sodium ER 500 MG TAB.ER.24H 1000 MG PO (22:20)
[2020-07-09] MEDS: QUEtiapine Fumarate 200 MG TABLET 400 MG PO (22:20)
[2020-07-09] MEDS: traZODone HCL 100 MG TABLET 200 MG PO (22:20)
[2020-07-09] MEDS: Melatonin 3 MG TABLET 6 MG PO (22:20)
[2020-07-10] MEDS: Omeprazole 20 MG CAPSULE.DR PO (06:43)
[2020-07-10 07:00] VITALS: BMI 30.1
[2020-07-10 08:11] VITALS: BP 119/63; PULSE 78; TEMP 36.2
[2020-07-10 08:31] LABS: Valproate 46.7 mcg/mL (50.0-100.0)
[2020-07-10] MEDS: hydrOXYzine HCL 25 MG TABLET 50 MG PO ×2 (08:36→12:10)
[2020-07-10 08:37] VITALS: BP 119/63; PULSE 78
[2020-07-10] MEDS: Propranolol HCL 20 MG TABLET PO ×2 (08:37→14:05)
[2020-07-10] MEDS: Sertraline HCL 50 MG TABLET 200 MG PO (08:37)
[2020-07-10] MEDS: QUEtiapine Fumarate 100 MG TABLET PO ×2 (08:37→12:10)
[2020-07-10] MEDS: Divalproex Sodium 500 MG TABLET.DR PO (08:37)
[2020-07-10 14:05] VITALS: BP 116/63; PULSE 82
[2020-07-10] MEDS: Naloxone HCl Nasal TAKE HOME 4 MG SPRAY NOSTRILALT (14:15)
--- NOTE | 2020-07-10 16:07 | PM.PSYDC ---
DS: Providers Provider Date of admission: 07/04/20 18:49 Primary care physician: Unknown Physician Attending physician on admission: Kelly Horowitz Attending physician on discharge: Kelly Horowitz Anticipated date of discharge: 07/10/20 DS: Diagnosis Discharge Diagnosis (1) Bipolar 1 disorder: Status: Acute (2) Cocaine use disorder: Status: Acute (3) Opioid use disorder: Status: Acute Discharge Plan Discharge Patient Disposition: Xfer Inpatient Rehab Fac Discharge Medications: New propranolol 20 mg Tablet 20 mg PO TID Qty: 90 RF: 1 divalproex [Depakote] 500 mg tablet,delayed release (DR/EC) 1,000 mg PO BEDTIME Qty: 60 RF: 1 quetiapine 200 mg Tablet 400 mg PO BEDTIME Qty: 30 RF: 1 melatonin 3 mg Tablet 6 mg PO BEDTIME Qty: 60 RF: 1 divalproex 500 mg Tablet,Delayed Release (Dr/Ec) 500 mg PO DAILY Qty: 30 RF: 1 quetiapine 100 mg Tablet 100 mg PO TIDAC Qty: 90 RF: 1 trazodone 100 mg Tablet 200 mg PO BEDTIME Qty: 60 RF: 1 omeprazole 20 mg Capsule,Delayed Release(Dr/Ec) 20 mg PO DAILY@0630 Qty: 30 RF: 1 hydroxyzine HCl 25 mg Tablet 50 mg PO TIDAC Qty: 90 RF: 1 sertraline 100 mg tablet 200 mg PO DAILY Qty: 60 RF: 1 Discharge Orders: Discharge Order (Routine); Ordered 07/10/20 Ordered By: Kelly Horowitz Diet: advance to your usual diet Activity on Discharge: As tolerated Stand Alone Forms: Community Support Discharge Date/Time: 07/10/20 15:19 Activity Restrictions/Additional Instructions: Provider cleared patient to be admitted to Visit Report Forms: Patient Portal Discharge page Care Plan Goals: Stay sober Health Concerns: Substance abuse Plan of Treatment: You are being discharged to [facility] in [place] Please stay the course Mental Status Exam Mental Status Exam Patient Appearance: Well Grooomed Patient Orientation: Person, Place and Time Level of Consciousness: Drowsy Patient Behavior: Guarded Mood Description: Apathetic, Anxious and Sad Affect Description: Depressed, Anxious, Sad and Nervous Patient Cognition Impaired: No Ability to Follow Directions: Good Speech Pattern: Clear, Appropriate and Spontaneous Speech Memory Description: Intact Hallucinations: None Delusions: Not Present Thought Process: Rumination and Goal Oriented Thought Content: positive for Circumstantial, negative for Suicidal Ideation and negative for Homicidal Ideation Depressive Symptoms: Feelings of Worthlessness and Low Self Esteem Judgement: Fair Data Data Completed and Pending Completed studies during hospitalization [Text1]: 07/04/20 07/04/20 07/04/20 11:25 16:32 16:32 WBC 7.0 RBC 4.98 Hgb 15.1 Hct 42.1 MCV 84.5 MCH 30.3 MCHC 35.9 RDW 12.0 Plt Count 201 MPV 10.6 Immature Gran % (Auto) 0.6 H Neut % (Auto) 48.3 Lymph % (Auto) 33.5 Travis % (Auto) 11.5 H Eos % (Auto) 5.8 H Baso % (Auto) 0.3 Lymph # (Auto) 2.4 Travis # (Auto) 0.8 Eos # (Auto) 0.4 Baso # (Auto) 0.0 Abs Immat Gran (auto) 0.04 H Absolute Neuts (auto) 3.4 Absolute Nucleated RBC 0.000 Nucleated RBC % (auto) 0.0 Sodium 136 Potassium 3.5 D Chloride 105 Carbon Dioxide 25 Anion Gap 10 L BUN 16 Creatinine 1.03 Estim Creat Clear Calc 126.3 Estimated GFR > 60 Random Glucose 141 H Calcium 8.4 Valproic Acid Coronavirus (PCR) NEGATIVE 07/10/20 06:59 WBC RBC Hgb Hct MCV MCH MCHC RDW Plt Count MPV Immature Gran % (Auto) Neut % (Auto) Lymph % (Auto) Travis % (Auto) Eos % (Auto) Baso % (Auto) Lymph # (Auto) Travis # (Auto) Eos # (Auto) Baso # (Auto) Abs Immat Gran (auto) Absolute Neuts (auto) Absolute Nucleated RBC Nucleated RBC % (auto) Sodium Potassium Chloride Carbon Dioxide Anion Gap BUN Creatinine Estim Creat Clear Calc Estimated GFR Random Glucose Calcium Valproic Acid 46.7 L Coronavirus (PCR) DS: Summary Hospital Course Hospital Course: Asher was referred by N after he presented to the ER with SI, in the context of homelessness and substance abuse. He has not been taking his medications consistently. He reports that he had OD on heroin and received Narcan. He was fearful that he would try again.'Toxic screen in the ER was negative. He has been increasingly despairing and hopeless. He reports that he just wants to give up He is relieved to be in the hospital Past Psychiatric History: Currently in treatment at [facility]. Psychiatrist is Rosendo Tomas Therapist is Iftikhar Banks Multiple psychiatric hospital stays. Last on [facility] in March 2020, when there was a petition for s35 For the rest of the details please refer to the admission summary. Hospital course Admitted on a CV. He was medically cleared in the ER and there were no sequelae from his OD. Asher was restarted on medication that he was on in the past. He rapidly recompensated. He was anxious to get help with his substance use and accepted referrals to [facility]. He was DC to [facility] in [place]. There was no behavioral dyscontrol during the stay. Time spent discussing smoking cessation with patient: 3 to 10 minutes Time Spent with Patient Time attestation: Total time spent providing and/or coordinating discharge services:
== END 2020-07-10 15:19 | DRG 753 ==
LOC: HO.ED 07-04 19:22 → HO.PM5 07-04 19:23
PROVIDERS: Physician Assistant Medical; Admitting Provider Psychiatry & Neurology Psychiatry; Emergency Provider Student in an Organized Health Care Education/Training Program; Visit Provider Psychiatry & Neurology Psychiatry
DX: F31.9 Bipolar disorder, unspecified (principal); R45.851 Suicidal ideations; I48.91 Unspecified atrial fibrillation; Z23 Encounter for immunization; F14.10 Cocaine abuse, uncomplicated; F11.10 Opioid abuse, uncomplicated; Z59.0 Homelessness; Z20.828 Contact with and (suspected) exposure to other viral communicable diseases; F17.210 Nicotine dependence, cigarettes, uncomplicated; Z71.6 Tobacco abuse counseling; Z79.899 Other long term (current) drug therapy
CPT/HCPCS: 36415; 80048; 80053; 80164; 80307; 80320; 81003; 85025; 87635; 90686; 93005; 99232; 99285

== ENCOUNTER 2022-03-14 06:17 | Emergency (ER) | payer MEDICAID, SELFPAY ==
[2022-03-14 06:25] VITALS: BP 140/88; PULSE 91; RESP 17; TEMP 36.3; O2SAT 97; BMI 34.0
[2022-03-14 07:05] LABS: Amphetamine Screen Urine Not Detected (Not Detect); Barbiturates, Urine Not Detected (Not Detect); Benzodiazepines Screen Urine Not Detected (Not Detect); Cannabinoid Screen Urine Not Detected (Not Detect); Cocaine Screen Urine POSITIVE (Not Detect); Fentanyl, urine POSITIVE (Not Detect); Opiate Screen Urine POSITIVE (Not Detect); Phencyclidine Screen Urine Not Detected (Not Detect)
[2022-03-14 07:07] LABS: COVID-19 Test Negative (Negative)
[2022-03-14 07:15] LABS: Ethanol < 10 mg/dL
[2022-03-14 07:17] LABS: Anion Gap 15 (12-20); Blood Urea Nitrogen 20 mg/dL (9-16); Calcium 9.2 mg/dL (8.4-10.2); Carbon Dioxide 24 mmol/L (22-29); Chloride 100 mmol/L (96-108); Creatinine Clr Calc Pharmacy 125.5; Estimated Glomerular Filt Rate > 60; Glucose Random 91 mg/dL (60-115); Potassium 3.9 mmol/L (3.3-5.1); Sodium 135 mmol/L (135-145)
[2022-03-14 07:18] LABS: Valproate 4.3 mcg/mL (50.0-100.0)
[2022-03-14 07:22] LABS: Basophils Absolute Auto 0.1 X10*3/uL (0.0-0.2); Basophils Percent Auto 0.6 % (0-2); Eosinophils Absolute Auto 0.5 X10*3/uL (0.0-0.4); Eosinophils Percent Auto 4.2 % (0-4); Hematocrit 49.4 % (42.0-52.0); Hemoglobin 17.2 g/dl (14.0-18.0); Imm Gran Abs Auto 0.07 X10*3/uL (0.00-0.03); Imm Gran Pct Auto 0.6 % (0.0-0.4); Lymphocytes Absolute Auto 3.3 X10*3/uL (1.2-4.9); Lymphocytes Percent Auto 28.3 % (20-40); MANUAL DIFF FLAG SCAN; Mean Corpuscular HGB Conc 34.8 g/dl (31.0-36.0); Mean Corpuscular Hemoglobin 29.5 pg (27.0-33.0); Mean Corpuscular Volume 84.7 fL (80.0-98.0); Mean Platelet Volume 11.2 fL (9.4-12.4); Monocytes Absolute Auto 1.5 X10*3/uL (0.1-1.2); Monocytes Percent Auto 12.9 % (2-11); Neutrophils Absolute Auto 6.3 x10*3/uL (2.0-8.3); Neutrophils Percent Auto 53.4 % (45-73); PLT CLUMP 1; Red Blood Count 5.83 X10*6/uL (4.60-5.80); Red Cell Distribution Width 12.6 % (11.0-16.0); SCAN SMEAR FLAG 1
[2022-03-14 07:45] LABS: White Blood Count 11.8 X10*3/uL (4.8-10.8)
[2022-03-14 07:46] LABS: SLIDE REVIEW VERIFIED
--- NOTE | 2022-03-14 08:07 | ED.PSYCH ---
HPI - Psych General Chief Complaint: Psychiatric Symptoms Stated Complaint: CRISIS +HI Time Seen by Provider: 03/14/22 08:07 Source: patient and EMS Mode of arrival: EMS Limitations: no limitations History of Present Illness HPI Narrative: Patient is a 41 year old male presenting to the emergency department today with homicidal ideation. Patient states that he is feeling like harming other people but not himself because he has not been taking his medications. Patient denies any thoughts of hurting himself. Patient denies any dizziness, lightheadedness, abdominal pain, nausea, vomiting, fever, chills, blurry vision, double vision, loss of vision, chest pain, difficulty breathing, shortness of breath, back pain, night sweats, pain with urination, increased urinary frequency, increased urinary urgency, blood in his urine or stool, syncope or a near syncopal episode, recent trauma or falls, bowel incontinence, bladder incontinence, bowel retention, bladder retention, or any other complaints at this time. MD complaint: homicidal ideation Onset (ago): day(s) Duration: constant Relieving factors: none Exacerbating factors: none Associated psychiatric symptoms: homicidal ideation Associated symptoms: denies other symptoms Treatments prior to arrival: none Related Data Previous Rx's Medication Instructions Recorded divalproex 500 mg tablet,delayed 500 mg PO DAILY #30 tabs 07/10/20 release divalproex 500 mg tablet,delayed 1,000 mg PO BEDTIME #60 tabs 07/10/20 release (Depakote) hydroxyzine HCl 25 mg tablet 50 mg PO TIDAC #90 tabs 07/10/20 melatonin 3 mg tablet 6 mg PO BEDTIME #60 tabs 07/10/20 omeprazole 20 mg capsule,delayed 20 mg PO DAILY@0630 #30 caps 07/10/20 release propranolol 20 mg tablet 20 mg PO TID #90 tabs 07/10/20 quetiapine 100 mg tablet 100 mg PO TIDAC #90 tabs 07/10/20 quetiapine 200 mg tablet 400 mg PO BEDTIME #30 tabs 07/10/20 sertraline 100 mg tablet 200 mg PO DAILY #60 tabs 07/10/20 trazodone 100 mg tablet 200 mg PO BEDTIME #60 tabs 07/10/20 Allergies Allergy/AdvReac Type Severity Reaction Status Date / Time No Known Allergies Allergy Unverified 06/12/20 15:32 [No Known Allergies*] Review of Systems Constitutional: Constitutional: Reports no additional constitutional complaints, Denies chills, Denies fever(s) and Denies night sweats Eyes: Eyes: Reports no additional eye complaints, Denies blurry vision, Denies change in vision, Denies diplopia, Denies eye discharge, Denies loss of vision and Denies eye pain ENT: Denies dizziness Cardiovascular: Cardiovascular: Reports no additional cardiovascular complaints, Denies chest pain, Denies lightheadedness, Denies Loss of Consciousness and Denies dyspnea Respiratory: Respiratory: Reports no additional respiratory complaints and Denies dyspnea Gastrointestinal: Gastrointestinal: Reports no additional gastrointestinal complaints, Denies abdominal pain, Denies melena, Denies hematochezia, Denies change in bowel habits and Denies change in stool character Genitourinary: Genitourinary: Reports no additional male genitourinary complaints, Denies hematuria, Denies oliguria, Denies difficulty urinating, Denies dysuria, Denies urinary frequency, Denies urinary hesitancy, Denies urinary incontinence and Denies urinary urgency Musculoskeletal: Musculoskeletal: Reports no additional musculoskeletal complaints, Denies numbness and Denies tingling Neurologic: Denies dizziness, Denies loss of vision, Denies numbness and Denies tingling Psychiatric: Psychiatric: Reports no additional psychiatric complaints and Reports homicidal ideation Endocrine: Endocrine: Reports no additional endocrine complaints Hematologic/Lymphatic: Hematologic/Lymphatic: Reports no additional hematologic/lymphatic complaints Allergic/Immunologic: Allergic/Immunologic: Reports no additional allergic/immunologic complaints FOR[facility], [facility] Past Medical History Attestation statement: The following information was validated with the patient. Source: old records reviewed Medical History Afib Anxiety Bipolar disorder Depression Stomach ulcer Social History Social History Household Members: None Household Members Other:: 0 Housing: Homeless Do you presently have visiting nurse or other home services: No Unable to assess alcohol history related to: Refusing to respond Alcohol intake: current Alcohol intake frequency: 3 or more drinks per day Alcohol type: beer and hard liquor Cigarette Packs Per Day: 2 Cigarettes Per Day: 40.0 Years Smoked: 25 YRS Second Hand Smoke Exposure: No Substance Use Type: Crack/Cocaine and Opiates Advance Directives: No Advance Directives Information Provided: Yes service: No Physical Exam Vital Signs: Vital Signs: Last Vital Signs Temp 97.3 F 03/14/22 06:25 Pulse 91 03/14/22 06:25 Resp 17 03/14/22 06:25 BP 140/88 H 03/14/22 06:25 Pulse Ox 97 03/14/22 06:25 O2 Del Method 03/14/22 06:25 BMI result Body Mass Index 34.0 Const: General: cooperative, no acute distress, alert and awake Nutritional Appearance: well nourished Orientation/consciousness: patient oriented x3 Limitations: no limitations HEENT: Head: Yes normal to inspection and Yes atraumatic Ears: hearing grossly normal bilaterally and external ears normal General nose exam: Normal external nose present, no nasal discharge noted and no epistaxis Face and sinus: Yes normal facial exam, No abrasion and No laceration Mouth: Normal oral and palatal mucosa present, no drooling and no muffled voice Eyes: General: appearance normal, both eyes and all related structures Periorbital: periorbital findings normal Eyelids: Yes eyelids normal Conjunctivae: conjunctivae normal Pupils: Equal, round and reactive pupils present EOM: EOMs intact bilaterally Neck: Neck: Yes normal visual inspection, Yes full ROM and Yes no lymphadenopathy Chest: Chest palpation & inspection: normal inspection of the chest Resp: Effort & Inspection: normal respiratory effort and able to speak in complete sentences Auscultation: clear to auscultation bilaterally Cardio: Rate: regular rate Rhythm: regular rhythm GI: Inspection: Yes normal to inspection Neuro: General: patient oriented x3 and moves all extremities Cranial nerves: Yes Equal, round and reactive pupils present Cognition (Neuro): normal cognition Motor exam (neuro): 5/5 motor strength present throughout Sensory Exam: Normal double simultaneous stimulation for sensation Coordination: [id number] test normal Extrem: General: Yes normal to inspection, Yes full ROM and Yes capillary refill normal Psych: Appearance: grossly normal Mental Status: mental status grossly normal Affect: Irritable affect present Attitude: cooperative Thought process: Normal thought process present Thought content: Homicidality present Insight: Fair insight present (Psych) MDM - Psych MDM Narrative Medical decision making narrative: Patient is a 41 year old male presenting to the emergency department today after an episode of acute psychosis. Patient's physical exam was unremarkable. Patient's blood work was unremarkable. I explained my physical exam findings as well as all test results to the patient. I answered all questions asked by the patient. N recommended the patient be discharged as he is now restablized and has access to his medications where he is staying. I stressed the importance of the patient taking his medication as prescribed. I stressed the importance of the patient following up with his primary care provider. I stressed the importance of the patient returning to the emergency department immediately if his symptoms were to worsen or if he were to develop any dizziness, shortness of breath, difficulty breathing, chest pain, blurry vision, loss of vision, nausea, vomiting, abdominal pain, fever, chills, back pain, or any other complaints. Patient verbalized agreement and understanding with this treatment plan and discharge. Differential Diagnosis Differential diagnosis: Likely acute psychosis Medical Records Attestation: I reviewed the patient's medical records. Lab Data Attestation: I reviewed the patient's lab results. Result diagrams: 03/14/22 06:52 03/14/22 06:52 Labs: Lab Results 03/14/22 03/14/22 03/14/22 Range/Units 06:34 06:37 06:52 WBC (4.8-10.8) X10*3/uL RBC (4.60-5.80) X10*6/uL Hgb (14.0-18.0) g/dl Hct (42.0-52.0) % MCV (80.0-98.0) fL MCH (27.0-33.0) pg MCHC (31.0-36.0) g/dl RDW (11.0-16.0) % Plt Count MPV (9.4-12.4) fL Immature Gran % (Auto) (0.0-0.4) % Neut % (Auto) (45-73) % Lymph % (Auto) (20-40) % [place] % (Auto) (2-11) % Eos % (Auto) (0-4) % Baso % (Auto) (0-2) % Lymph # (Auto) (1.2-4.9) X10*3/uL [place] # (Auto) (0.1-1.2) X10*3/uL Eos # (Auto) (0.0-0.4) X10*3/uL Baso # (Auto) (0.0-0.2) X10*3/uL Abs Immat Gran (auto) (0.00-0.03) X10*3/uL Absolute Neuts (auto) (2.0-8.3) x10*3/uL Absolute Nucleated RBC (0.0-0.012) X10*3/uL Nucleated RBC % (auto) (0.0-0.2) /100WBC Smear Tech's Comments Sodium 135 (135-145) mmol/L Potassium 3.9 (3.3-5.1) mmol/L Chloride 100 (96-108) mmol/L Carbon Dioxide 24 (22-29) mmol/L Anion Gap 15 (12-20) BUN 20 H (9-16) mg/dL Creatinine 0.94 (0.5-1.4) mg/dL Estim Creat Clear Calc 125.5 Estimated GFR > 60 Random Glucose 91 D (60-115) mg/dL Calcium 9.2 D (8.4-10.2) mg/dL Urine Opiates Screen POSITIVE H (Not Detect) Urine Fentanyl Screen POSITIVE H (Not Detect) Ur Barbiturates Screen Not Detected (Not Detect) Valproic Acid 4.3 L (50.0-100.0) mcg/mL Ur Phencyclidine Scrn Not Detected (Not Detect) Ur Amphetamines Screen Not Detected (Not Detect) U Benzodiazepines Scrn Not Detected (Not Detect) Urine Cocaine Screen POSITIVE H (Not Detect) U Marijuana (THC) Screen Not Detected (Not Detect) Ethyl Alcohol mg/dL COVID-19 ([facility]) Negative (Negative) COVID-19 Clin Com See Note 03/14/22 03/14/22 03/14/22 Range/Units 06:52 06:52 06:53 WBC 11.8 H (4.8-10.8) X10*3/uL RBC 5.83 H (4.60-5.80) X10*6/uL Hgb 17.2 (14.0-18.0) g/dl Hct 49.4 (42.0-52.0) % MCV 84.7 (80.0-98.0) fL MCH 29.5 (27.0-33.0) pg MCHC 34.8 (31.0-36.0) g/dl RDW 12.6 (11.0-16.0) % Plt Count TNP MPV 11.2 (9.4-12.4) fL Immature Gran % (Auto) 0.6 H (0.0-0.4) % Neut % (Auto) 53.4 (45-73) % Lymph % (Auto) 28.3 (20-40) % [place] % (Auto) 12.9 H (2-11) % Eos % (Auto) 4.2 H (0-4) % Baso % (Auto) 0.6 (0-2) % Lymph # (Auto) 3.3 (1.2-4.9) X10*3/uL [place] # (Auto) 1.5 H (0.1-1.2) X10*3/uL Eos # (Auto) 0.5 H (0.0-0.4) X10*3/uL Baso # (Auto) 0.1 (0.0-0.2) X10*3/uL Abs Immat Gran (auto) 0.07 H (0.00-0.03) X10*3/uL Absolute Neuts (auto) 6.3 (2.0-8.3) x10*3/uL Absolute Nucleated RBC 0.000 (0.0-0.012) X10*3/uL Nucleated RBC % (auto) 0.0 (0.0-0.2) /100WBC Smear Tech's Comments VERIFIED Sodium (135-145) mmol/L Potassium (3.3-5.1) mmol/L Chloride (96-108) mmol/L Carbon Dioxide (22-29) mmol/L Anion Gap (12-20) BUN (9-16) mg/dL Creatinine (0.5-1.4) mg/dL Estim Creat Clear Calc Estimated GFR Random Glucose (60-115) mg/dL Calcium (8.4-10.2) mg/dL Urine Opiates Screen (Not Detect) Urine Fentanyl Screen (Not Detect) Ur Barbiturates Screen (Not Detect) Valproic Acid (50.0-100.0) mcg/mL Ur Phencyclidine Scrn (Not Detect) Ur Amphetamines Screen (Not Detect) U Benzodiazepines Scrn (Not Detect) Urine Cocaine Screen (Not Detect) U Marijuana (THC) Screen (Not Detect) Ethyl Alcohol < 10 Cancelled mg/dL COVID-19 ([facility]) (Negative) COVID-19 Clin Com Discharge Plan Discharge Clinical Impression: Acute psychosis Patient Disposition: Home, Self-Care Instructions: Brief Psychotic Disorder (ED) Additional Instructions: Follow up with your primary care provider. Return to the emergency department immediately if your symptoms worsen or if you develop any dizziness, shortness of breath, difficulty breathing, chest pain, blurry vision, loss of vision, nausea, vomiting, abdominal pain, fever, chills, back pain, or any other complaints. Prescriptions: No Action propranolol 20 mg Tablet 20 mg PO TID Qty: 90 1RF Protocol: Hold for SBP/HR < HOLD for SBP < : 90 HOLD for HR < : 60 divalproex [Depakote] 500 mg tablet,delayed release (DR/EC) 1,000 mg PO BEDTIME Qty: 60 1RF quetiapine 200 mg Tablet 400 mg PO BEDTIME Qty: 30 1RF melatonin 3 mg Tablet 6 mg PO BEDTIME Qty: 60 1RF divalproex 500 mg Tablet,Delayed Release (Dr/Ec) 500 mg PO DAILY Qty: 30 1RF quetiapine 100 mg Tablet 100 mg PO TIDAC Qty: 90 1RF trazodone 100 mg Tablet 200 mg PO BEDTIME Qty: 60 1RF omeprazole 20 mg Capsule,Delayed Release(Dr/Ec) 20 mg PO DAILY@0630 Qty: 30 1RF hydroxyzine HCl 25 mg Tablet 50 mg PO TIDAC Qty: 90 1RF sertraline 100 mg tablet 200 mg PO DAILY Qty: 60 1RF Print Language: [place] Citizen
--- NOTE | 2022-03-14 10:01 | PC.NURSE ---
PT SEEN BY [facility] CLINICIAN AND IS NOW CLEARED FOR DISCHARGE. PT AWARE OF PLAN.
== END 2022-03-14 10:19 | disposition home or self-care (01) ==
PROVIDERS: Emergency Provider Emergency Medicine Emergency Medical Services
DX: F33.1 Major depressive disorder, recurrent, moderate (principal); R45.850 Homicidal ideations; F17.210 Nicotine dependence, cigarettes, uncomplicated; Z20.822 Contact with and (suspected) exposure to COVID-19; Z71.6 Tobacco abuse counseling; Z79.899 Other long term (current) drug therapy
CPT/HCPCS: 36415; 80048; 80164; 80307; 82077; 85025; 87635; 99284